=== PATIENT | male | born 2000 | race Caucasian/White ===

== ENCOUNTER 2025-01-07 12:03 | Emergency (ER) | payer MEDICAID, SELFPAY ==
[2025-01-07 12:03] VITALS: BP 119/78; PULSE 78; RESP 19; TEMP 36.6; O2SAT 98; BMI 21.2
--- NOTE | 2025-01-07 12:40 | ED.RN ---
Pt called from waiting room for ED bed. Restroom and outside area checked. Pt not found, assumed LWBS.
== END 2025-01-07 12:40 | disposition left against medical advice (07) ==
LOC: ED 13:15
PROVIDERS: PCP Pediatrics
DX: Z00.00 Encounter for general adult medical examination without abnormal findings (principal)